=== PATIENT | female | born 1940 | race Caucasian/White ===

== ENCOUNTER 2017-01-05 14:39 | Inpatient (IN) | payer MEDICARE ==
[~2017-01-05] VITALS: Ht 162.6 cm; Wt 78.0 kg
--- NOTE | ~2017-01-05 | DS ---
Discharge Summary [facility] [address] [place]. [address] NAME: MELVIN FAGAN : 42 STATUS : DIS IN PAT#: [id number] AGE: 76 ADM/REG DATE : 01/05/17 MR#: [id number] REPORT SERV DATE: 01/07/17 DICTATED BY: JR. LEONARD WILLIAM JOHN DATE: 01/06/17 REPORT STATUS : Draft TRANSCRIBED BY: JRAED DATE: 01/06/17 ADMISSION DATE: 01/05/2017 DISCHARGE DATE: 01/06/2017 DISCHARGE DIAGNOSES: 1. Coronary artery disease with drug-eluting stent placed in the right coronary artery. 2. Chest pain. 3. Hypertension. 4. Diabetes mellitus type 2. 5. Gastroesophageal reflux disease. 6. History of atrial fibrillation. 7. History of stroke. 8. History of carotid disease with carotid stenting. 9. History of systemic lupus erythematosus. 10.History of breast cancer status post bilateral mastectomy and radiation therapy. OPERATIONS/PROCEDURES/TREATMENTS: 1. Chest x-ray done 01/03/2017 which showed no acute cardiopulmonary disease. 2. Repeat chest x-ray done 01/04/2017 which showed pulmonary venous congestion. 3. Cardiac catheterization done 01/05/2017 which showed left main normal, LAD with mild luminal irregularities throughout with a high diagonal, left circumflex had two obtuse marginals that were normal, right coronary was dominant with a 99% focal stenosis at the PDA/PLB bifurcation. The remainder of the artery had mild luminal irregularities. This artery was intervened on with a drug-eluting stent. DISCHARGE MEDICATIONS: 1. Aspirin 81 mg orally daily. 2. Atenolol 25 mg orally twice a day. 3. Lipitor 40 mg orally daily. 4. Plavix 75 mg daily. 5. Disopyramide or Norpace 100 mg daily. 6. Zantac 150 mg daily. 7. Neurontin 100 mg twice a day. 8. Glimepiride 1 mg twice a day. 9. Lisinopril/hydrochlorothiazide 02/05.5 one tablet orally daily. 10.Albuterol metered-dose inhaler q.4 hours p.r.n. HOSPITAL COURSE: The patient was a 76-year-old female, presented to [facility] on 01/04/2017 with complaint of chest pain. The patient stated the pain had been on and off, but over the past two weeks, it had been occurring more frequently, it was vice-like pain, going across her chest. The evening of presentation, having to give CPR to her service dog, afterward she continued to have vice-like pain, right greater than left. Because of this, she came to the emergency room. She had some diaphoresis and shortness of breath, but no nausea or vomiting. She states that she had some lower extremity edema, but it is chronic. On initial exam, blood pressure is 167/76, temperature 98.4, heart rate 73, respiratory rate of 18. Exam was overall unremarkable except trace edema. Laboratory, had a troponin of Discharge Summary [facility] [place] [id number] [place]. [address] NAME: MELVIN FAGAN : 42 STATUS : DIS IN PAT#: [id number] AGE: 76 ADM/REG DATE : 01/05/17 MR#: [id number] REPORT SERV DATE: 01/07/17 DICTATED BY: JR. LEONARD WILLIAM JOHN DATE: 01/06/17 REPORT STATUS : Draft TRANSCRIBED BY: JARED DATE: 01/06/17 0.03. Chest x-ray as detailed above. The patient was admitted to [facility]. The plan was for the patient to have serial cardiac enzymes followed by stress test. Unfortunately, she had severe chest pain. Her troponin jumped to 0.08. It was decided most prudent to transfer the patient to [facility] for cardiac catheterization. The patient underwent cardiac catheterization, which is detailed above. She had a drug-eluting stent placed in the right coronary. Recommendation is one year of Plavix as well as daily aspirin, also Crestor was replaced with Lipitor. Followup will be with Dr. Herring in three weeks. The remainder of the patient's health problems were stable and were not addressed during this hospital stay. For discharge exam and laboratory, please see daily progress note. DISCHARGE DIET: ADA. ACTIVITY: As tolerated. FOLLOWUP: Followup will be with Dr. Andres Ragland in one week as well as Dr. Jerardo Herring of [facility] in three weeks. This discharge took greater than 30 minutes for patient encounter, coordination of care, and documentation. ALEIDA/JARED Tu Leonard Jr, MD / [id number] CC: Zhane Lopez M.D.
[~2017-01-05 14:39] MED LIST: AMARYL1 MG PO; ATEN25 PO; NEUR100 PO; PLAVIX PO; PRINZIDE1 TAB PO; PROAIR HFA INH; ZANTAC150 MG PO; [UNRECOGNIZED DRUG - CODE] PO
[2017-01-06] MEDS ORDERED: LIPITOR40 PO (10:59)
[2017-01-06] MEDS ORDERED: ASAB PO (11:05)
[2017-01-06] MEDS ORDERED: NTG150 SL (11:05)
== END 2017-01-06 13:37 | disposition home or self-care (01) | DRG 247 ==
LOC: CORLMH 14:39 → SSU1 16:19 → CORLMH 18:00 → SSU1 18:00
PROC: 027034Z Dilation of Coronary Artery, One Artery with Drug-eluting Intraluminal Device, Percutaneous Approach (ICD-10-PCS; principal; 2017-01-05)
PROC: 4A023N7 Measurement of Cardiac Sampling and Pressure, Left Heart, Percutaneous Approach (ICD-10-PCS; 2017-01-05)
PROC: B2111ZZ Fluoroscopy of Multiple Coronary Arteries using Low Osmolar Contrast (ICD-10-PCS; 2017-01-05)
PROC: B2151ZZ Fluoroscopy of Left Heart using Low Osmolar Contrast (ICD-10-PCS; 2017-01-05)
DX: I25.119 Atherosclerotic heart disease of native coronary artery with unspecified angina pectoris (principal); M32.9 Systemic lupus erythematosus, unspecified; E11.9 Type 2 diabetes mellitus without complications; I10 Essential (primary) hypertension; K21.9 Gastro-esophageal reflux disease without esophagitis; Z85.3 Personal history of malignant neoplasm of breast; Z92.3 Personal history of irradiation; Z90.13 Acquired absence of bilateral breasts and nipples; Z86.73 Personal history of transient ischemic attack (TIA), and cerebral infarction without residual deficits; Z95.820 Peripheral vascular angioplasty status with implants and grafts
CPT/HCPCS: 82962; 85347; 93005; 93458; 99152; 99153; A9270-GY; C1725; C1769; C1874; C1887; C9600; J2250; J3010; Q9967